=== PATIENT | male | born 1975 | race Caucasian/White ===

== ENCOUNTER 2016-09-28 05:56 | Inpatient (IN) | payer OTHER ==
[~2016-09-28] VITALS: Ht 177.8 cm; Wt 123.0 kg
[2016-09-28] VITALS (7 sets, daily range): BP systolic 121–155; BP diastolic 73–95; PULSE 82–110; RESP 9–20; Ht 177.8 cm; Wt 123.0 kg
[2016-09-28] MEDS ORDERED: LIDOCAINE 0.5% (MDV) 50 ML INJ ONE (08:36)
[2016-09-28] MEDS ORDERED: THROMBIN 5000 UNIT VIAL ONE ×3 (08:36→16:42)
[2016-09-28] MEDS ORDERED: BUPIVACAINE 0.5%/EPI (SDV) 10 ML INJ ONE (08:36)
[2016-09-28] MEDS ORDERED: GELATIN SIZE 100 SPONGE ONE (08:36)
[2016-09-28] MEDS ORDERED: POLYMYXIN/BACITRACIN 1L IRRIG ONE (08:37)
[2016-09-28] MEDS ORDERED: ROCURONIUM 50 MG INJ ONE ×2 (09:10→19:54)
[2016-09-28] MEDS ORDERED: MIDAZOLAM 1 MG/ML 2 ML INJ ONE (09:10)
[2016-09-28] MEDS ORDERED: PROPOFOL 20 ML ONE ×3 (09:10→19:54)
[2016-09-28] MEDS ORDERED: HYDROmorphONE 2 MG/ML SYG ONE ×2 (09:10→20:50)
[2016-09-28] MEDS ORDERED: SUCCINYLCHOLINE CHLORIDE 100 MG/5 ML SYG IV ONE (09:10)
[2016-09-28] MEDS ORDERED: METOCLOPRAMIDE 10 MG INJ ONE (09:10)
--- NOTE | 2016-09-28 09:52 | HPN ---
Date/Time of Note Date/Time of Note DATE: 09/28/16 TIME: 09:52 Interval H&P Admission Note Pt. seen H&P reviewed: No system changes VILMA GREEN MD Sep 28, 2016 09:52
[2016-09-28] MEDS ORDERED: METOPROLOL 5 MG INJ ONE ×2 (10:41→18:20)
[2016-09-28] MEDS ORDERED: METOCLOPRAMIDE 10 MG INJ IV PRN ×2 (18:00→20:30)
[2016-09-28] MEDS ORDERED: EPHEDrine SULFATE 50 MG/5 ML SYG IV PRN ×2 (18:00→20:30)
[2016-09-28] MEDS ORDERED: HYDROmorphONE (0.2 MG/ML) 10ML SYG IV PRN ×3 (18:00)
[2016-09-28] MEDS ORDERED: MIDAZOLAM 1 MG/ML 2 ML INJ IV PRN ×2 (18:00→20:30)
[2016-09-28] MEDS ORDERED: hydrALAzine 20 MG INJ IV PRN ×2 (18:00→20:30)
[2016-09-28] MEDS ORDERED: LABETALOL HCL 20MG INJ IV PRN ×2 (18:00→20:30)
[2016-09-28] MEDS ORDERED: ONDANSETRON 4 MG INJ IV PRN ×3 (18:00→21:00)
[2016-09-28] MEDS ORDERED: DIPHENHYDRAMINE 50 MG INJ IV PRN ×2 (18:00→20:30)
[2016-09-28] MEDS ORDERED: MEPERIDINE 25 MG INJ IV PRN ×2 (18:00→20:30)
[2016-09-28] MEDS ORDERED: FENTAnyl 50 MCG/ML VIAL ONE (19:43)
[2016-09-28] MEDS ORDERED: HYDROmorphONE 1 MG/ML SYG IV PRN ×3 (20:30)
[2016-09-28] MEDS ORDERED: ALBUTEROL 0.083% (NEB) 2.5 MG/3 ML AMP HHN ONE (20:30)
[2016-09-28] MEDS ORDERED: FAT EMULSION 20% 0 ML IV ONE (20:50)
[2016-09-28] MEDS ORDERED: BISACODYL 10 MG SUPP PR PRN (21:00)
[2016-09-28] MEDS ORDERED: NALOXONE (0.4 MG/ML) INJ IV PRN (21:00)
--- NOTE | 2016-09-28 21:00 | RADRPT ---
PROCEDURE: Intraoperative imaging of the lumbar spine with fluoroscopy. CLINICAL INDICATION: Back pain. Intraoperative. TECHNIQUE: 34 images of the lumbar spine were obtained in the operating room with an image intensi fier. No radiologist was in attendance. 400 seconds of fluoroscopy time was used. COMPARISON: No prior study is available for comparison. FINDINGS: For the purposes of this report, the last apparent true disc level is considered to be L5-S1. Based on this, images demonstrate posterior fusion with pedicle screws and connecting rods at the L3, L4, 5, and S1. Intervertebral cages are also present at L3-4, L4-5, and L5-S1. IMPRESSION: 1. Intraoperative imaging of the lumbar spine. RPTAT: QQ .Humberto Peres MD, MD Date Time Electronically viewed and signed by .Humberto Peres MD, on 09/28/2016 21:00 .R/
--- NOTE | 2016-09-28 21:03 | OPR ---
Date/Time of Note Date/Time of Note DATE: 09/28/16 TIME: 21:00 Operative Report Preoperative Diagnosis Recurrent L4-S1 disc herniation x3 and stenosis Postoperative Diagnosis Same as above + heavily calcified L4-S1 disc herniation causing severe stenosis Operation/Procedure Performed Redo L3, L4 and L5 laminectomy, L4-S1 MIS TLIF with posterior instrumented fusion, partial left L3-4, L4-5, L5-S1 corpectomy for resection of calcified disc herniations Surgeon: VILMA GREEN MD Anesthesia: general Estimated Blood Loss: 250 - 300 ml's Specimens None Grafts/Implants See op report Complications: None VILMA GREEN MD Sep 28, 2016 21:03
[2016-09-28] MEDS: traMADol 50 MG TAB PO SCH (21:29)
[2016-09-28] MEDS: DOCUSATE SODIUM 100 MG CAP PO SCH (21:29)
[2016-09-28] MEDS: CYCLOBENZAPRINE 10 MG TAB PO SCH (21:29)
[2016-09-28] MEDS: HYDROCODONE/APAP (10/325) TAB PO SCH (21:30)
[2016-09-28] MEDS: CEFAZOLIN 1 GM/50 ML (PMX) 50 ML IVPB SCH (21:30)
[2016-09-28] MEDS: D5W-0.45 NACL + KCL 20 MEQ 1,000 ML IV SCH (21:45)
[2016-09-28] MEDS: HYDROmorphONE 1 MG/ML SYG IV PRN (22:04)
[2016-09-29] VITALS (18 sets, daily range): BP systolic 97–151; BP diastolic 53–92; PULSE 79–105; RESP 14–29
[2016-09-29] MEDS: HYDROmorphONE 1 MG/ML SYG IV PRN ×9 (02:29→20:02)
[2016-09-29] MEDS: HYDROCODONE/APAP (10/325) TAB PO SCH ×3 (02:46→14:55)
[2016-09-29] MEDS: traMADol 50 MG TAB PO SCH ×4 (03:05→21:02)
[2016-09-29 05:11] LABS: ADD SCAN DIFF NO
[2016-09-29 05:19] LABS: BASOPHILS % 0.2 % (0.0-2.0); HEMATOCRIT 41.4 % (42.0-52.0); HEMOGLOBIN 14.2 g/dl (14.0-18.0); LYMPHOCYTES # 1.2 10^3/ul (0.8-2.9); LYMPHOCYTES % 7.8 % (15.0-51.0); MEAN CORPUSCULAR HEMOGLOBIN 29.5 pg (29.0-33.0); MEAN CORPUSCULAR HGB CONC 34.3 g/dl (32.0-37.0); MEAN CORPUSCULAR VOLUME 85.9 fl (82.0-101.0); MEAN PLATELET VOLUME 11.3 fl (7.4-10.4); MONOCYTE # 1.5 10^3/ul (0.3-0.9); MONOCYTES % 9.5 % (0.0-11.0); NEUTROPHIL # 12.9 10^3/ul (1.6-7.5); NEUTROPHILS % 82.1 % (39.0-77.0); PLATELET COUNT 236 10^3/UL (140-415); RED BLOOD COUNT 4.82 10^6/ul (4.70-6.10); RED CELL DISTRIBUTION WIDTH 11.9 % (11.5-14.5); WHITE BLOOD COUNT 15.8 10^3/ul (4.8-10.8)
[2016-09-29 05:50] LABS: CALCIUM 8.9 mg/dl (8.4-10.2); CREATININE 0.8 mg/dl (0.61-1.24); POTASSIUM 3.8 mmol/L (3.5-5.1)
[2016-09-29] MEDS: PANTOPRAZOLE 40 MG INJ IV SCH (05:56)
[2016-09-29] MEDS: CEFAZOLIN 1 GM/50 ML (PMX) 50 ML IVPB SCH ×2 (06:01→13:15)
[2016-09-29] MEDS: D5W-0.45 NACL + KCL 20 MEQ 1,000 ML IV SCH ×2 (07:06→20:45)
[2016-09-29] MEDS: CYCLOBENZAPRINE 10 MG TAB PO SCH ×3 (08:02→21:01)
[2016-09-29] MEDS: DOCUSATE SODIUM 100 MG CAP PO SCH ×2 (08:02→21:02)
[2016-09-29] MEDS ORDERED: LOSA100T7 PO (20:35)
[2016-09-29] MEDS ORDERED: HYD25 PO (20:35)
[2016-09-29] MEDS: OXYCODONE/ACETAMINOPHEN (10/325) TAB PO SCH (21:01)
[2016-09-30] MEDS: HYDROmorphONE 1 MG/ML SYG IV PRN ×3 (01:21→13:51)
[2016-09-30] MEDS: D5W-0.45 NACL + KCL 20 MEQ 1,000 ML IV SCH ×3 (02:45→22:22)
[2016-09-30] MEDS: OXYCODONE/ACETAMINOPHEN (10/325) TAB PO SCH ×4 (02:56→21:05)
[2016-09-30] MEDS: traMADol 50 MG TAB PO SCH ×4 (02:56→21:07)
[2016-09-30] MEDS: PANTOPRAZOLE 40 MG INJ IV SCH (05:09)
[2016-09-30] MEDS: CYCLOBENZAPRINE 10 MG TAB PO SCH ×3 (07:55→21:06)
[2016-09-30] MEDS: DOCUSATE SODIUM 100 MG CAP PO SCH ×2 (07:56→21:05)
[2016-09-30 08:18] VITALS: BP 116/58; RESP 18
[2016-09-30] MEDS ORDERED: LOSARTAN 50 MG TAB PO SCH (09:00)
--- NOTE | 2016-09-30 18:17 | PN ---
Date/Time of Note Date/Time of Note DATE: 09/30/16 TIME: 17:44 Assessment/Plan VTE Prophylaxis VTE Prophylaxis Intervention: SCD's Lines/Catheters IV Catheter Type (from Nrs): Saline Lock Central line still needed: No Urinary Cath still in place: No Assessment/Plan Assessment/Plan 41 year old male who was electively admitted for lumbar surgery who underwent redo L3, L4 and L5 laminectomy, L4-S1 MIS TLIF with posterior instrumented fusion, partial left L3-4, L4-5, L5-S1 corpectomy for resection of calcified disc herniations. Overall, he is progressing well, however he is orthostatic possibly secondary to his BP meds. Therefore, he cannot actively participate in PT. Also, there has been a delay in obtaining a back brace which is holding up the discharge. Hopefully, it will be available tomorrow. I will decrease his BP medication to half dose and monitor his BP. Also, the patient has a history of DM, but his has lost about 50 lbs. I will check a hgbA1c and order DM education. Dispo: Home tomorrow after back brace is received and patient tolerating PT. He is amenable to going to outpatient PT at [facility] in [place] as he understands that outpatient PT is preferred as he is not homebound and will have access to equipment to assist in the recovery process. Subjective 24 Hr Interval Summary Free Text/Dictation Back pain improved with modification of medications. Drinking more water, but feeling dizzy when he ambulates making it difficult to participate with PT. Constitutional: no complaints Eyes: no complaints ENT: no complaints Respiratory: no complaints Cardiovascular: no complaints Gastrointestinal: no complaints Genitourinary: no complaints Musculoskeletal: no complaints Neurologic: no complaints Exam/Review of Systems Vital Signs Vitals Vital Signs Date Time Temp Pulse Resp B/P Pulse Ox O2 Delivery O2 Flow Rate FiO2 09/30/16 08:18 98.7 11 18 116/58 91 09/29/16 14:05 Room Air 09/29/16 13:00 2.0 09/28/16 23:04 28 Intake and Output 09/29/16 09/29/16 09/30/16 15:00 23:00 07:00 Intake Total 770 ml 800 ml 720 ml Output Total 495 ml 300 ml 800 ml Balance 275 ml 500 ml -80 ml Exam Constitutional: alert, oriented Psych: nl mood/affect, no complaints Head: normocephalic Eyes: nl conjunctiva ENMT: nl external ears & nose Neck: supple Respiratory: clear to auscultation Cardiovascular: regular rate and rhythm Gastrointestinal: soft Extremities: normal pulses Results Result Diagram: 09/29/16 0440 09/29/16 0440 Results 24 hrs Laboratory Tests Test 09/30/16 12:04 Hemoglobin A1c 5.2 Medications Medications Current Medications Potassium Chloride/Dextrose/ Sod Cl (D5-1/2ns + KCl 20 Meq) 1,000 ml @ 100 mls/ hr Q10H IV Last administered on 09/29/16 07:06; Admin Dose 100 MLS/HR; Start at 20:45 Hydromorphone HCl (Dilaudid) 0.2 mg Q1H PRN IV BREAKTHROUGH PAIN Last administered on 09/30/16 13:51; Admin Dose 0.2 MG; Start 09/28/16 at 21:00 Ondansetron HCl (Zofran Inj) 4 mg Q6H PRN IV NAUSEA AND/OR VOMITING Last administered on 09/29/16 10:14; Admin Dose 4 MG; Start 09/28/16 at 21:00 Bisacodyl (Dulcolax Supp) 10 mg DAILY PRN [place] CONSTIPATION; Start 09/28/16 at 21: 00 Docusate Sodium (Colace) 100 mg BID PO Last administered on 09/30/16 07:56; Admin Dose 100 MG; Start 09/28/16 at 21:00 Pantoprazole (Protonix Iv) 40 mg DAILY@06 IV Last administered on 09/30/16 05: 09; Admin Dose 40 MG; Start 09/29/16 at 06:00 Cyclobenzaprine HCl (Flexeril) 10 mg TID PO Last administered on 09/30/16 12:35 ; Admin Dose 10 MG; Start 09/28/16 at 21:00 Naloxone HCl (Narcan) 0.2 mg Q2M PRN IV RR 8 BREATHS/MIN OR LESS; Start at 21:00 Tramadol HCl (Ultram) 75 mg Q6H PO Last administered on 09/30/16 14:35; Admin Dose 75 MG; Start 09/29/16 at 21:00 Oxycodone/ Acetaminophen (Endocet (10/ 325)) 2 tab Q6H PO Last administered on 09/30/16t 14:35; Admin Dose 2 TAB; Start 09/29/16 at 21:00 Losartan Potassium (Cozaar) 50 mg DAILY PO ; Start 10/01/16 at 09:00 Gabapentin (Neurontin) 100 mg TID PO ; Start 09/30/16 at 21:00 FAITH BELLA MD Sep 30, 2016 17:54
[2016-09-30 20:04] VITALS: BP 116/55; RESP 16
[2016-09-30] MEDS: GABAPENTIN 100 MG CAP PO SCH (21:05)
[2016-10-01] MEDS: HYDROmorphONE 1 MG/ML SYG IV PRN ×2 (01:25→05:49)
[2016-10-01] MEDS: OXYCODONE/ACETAMINOPHEN (10/325) TAB PO SCH ×3 (03:02→14:59)
[2016-10-01] MEDS: traMADol 50 MG TAB PO SCH ×3 (03:02→15:56)
[2016-10-01] MEDS ORDERED: PANTOPRAZOLE (EC) 40 MG TAB PO SCH (06:00)
[2016-10-01 08:00] VITALS: BP 112/54; RESP 18
[2016-10-01] MEDS: D5W-0.45 NACL + KCL 20 MEQ 1,000 ML IV SCH (08:45)
[2016-10-01] MEDS ORDERED: LOSARTAN 50 MG TAB PO SCH (09:00)
[2016-10-01] MEDS: GABAPENTIN 100 MG CAP PO SCH ×2 (09:20→13:38)
[2016-10-01] MEDS: CYCLOBENZAPRINE 10 MG TAB PO SCH ×2 (09:20→13:38)
[2016-10-01] MEDS: DOCUSATE SODIUM 100 MG CAP PO SCH (09:20)
--- NOTE | 2016-10-01 11:55 | PN ---
Date/Time of Note Date/Time of Note DATE: 10/01/16 TIME: 11:53 Assessment/Plan VTE Prophylaxis VTE Prophylaxis Intervention: ambulation Lines/Catheters IV Catheter Type (from Nrsg): Saline Lock Urinary Cath still in place: No Assessment/Plan Assessment/Plan 1. POD #2 lumbar spinal fusion, cont PT, increase activity, plan d/c home Subjective 24 Hr Interval Summary Free Text/Dictation no complaints, pain controlled able to walk down the [place] today Exam/Review of Systems Vital Signs Vitals Vital Signs Date Time Temp Pulse Resp B/P Pulse Ox O2 Delivery O2 Flow Rate FiO2 10/01/16 08:00 98.9 91 18 112/54 98 09/29/16 14:05 Room Air 09/29/16 13:00 2.0 09/28/16 23:04 28 Intake and Output 09/30/16 09/30/16 10/01/16 15:00 23:00 07:00 Intake Total 1000 ml 1040 ml Output Total 1600 ml Balance 1000 ml -560 ml Exam nad, soft nt, ctab Results Result Diagram: 09/29/16 0440 09/29/16 0440 Results 24 hrs Laboratory Tests Test 09/30/16 12:04 Hemoglobin A1c 5.2 Medications Medications Current Medications Potassium Chloride/Dextrose/ Sod Cl (D5-1/2ns + KCl 20 Meq) 1,000 ml @ 100 mls/ hr Q10H IV Last administered on 09/29/16 07:06; Admin Dose 100 MLS/HR; Start at 20:45 Hydromorphone HCl (Dilaudid) 0.2 mg Q1H PRN IV BREAKTHROUGH PAIN Last administered on 10/01/16 05:49; Admin Dose 0.2 MG; Start 09/28/16 at 21:00 Ondansetron HCl (Zofran Inj) 4 mg Q6H PRN IV NAUSEA AND/OR VOMITING Last administered on 09/29/16 10:14; Admin Dose 4 MG; Start 09/28/16 at 21:00 Bisacodyl (Dulcolax Supp) 10 mg DAILY PRN [place] CONSTIPATION; Start 09/28/16 at 21: 00 Docusate Sodium (Colace) 100 mg BID PO Last administered on 10/01/16 09:20; Admin Dose 100 MG; Start 09/28/16 at 21:00 Cyclobenzaprine HCl (Flexeril) 10 mg TID PO Last administered on 10/01/16 09: 20; Admin Dose 10 MG; Start 09/28/16 at 21:00 Naloxone HCl (Narcan) 0.2 mg Q2M PRN IV RR 8 BREATHS/MIN OR LESS; Start at 21:00 Tramadol HCl (Ultram) 75 mg Q6H PO Last administered on 10/01/16 10:30; Admin Dose 75 MG; Start 09/29/16 at 21:00 Oxycodone/ Acetaminophen (Endocet (10/ 325)) 2 tab Q6H PO Last administered on 10/01/16 09:20; Admin Dose 2 TAB; Start 09/29/16 at 21:00 Losartan Potassium (Cozaar) 50 mg DAILY PO ; Start 10/01/16 at 09:00 Gabapentin (Neurontin) 100 mg TID PO Last administered on 10/01/16 09:20; Admin Dose 100 MG; Start 09/30/16 at 21:00 Pantoprazole (Protonix Tab) 40 mg DAILY@06 PO Last administered on 10/01/16 05 :49; Admin Dose 40 MG; Start 10/01/16 at 06:00 ILEANA GRANDE MD Oct 01, 2016 11:55
[2016-10-01] MEDS ORDERED: CYCL-319 PO (11:59)
[2016-10-01] MEDS ORDERED: GABA100C14 PO (11:59)
[2016-10-01] MEDS ORDERED: SENN-36 PO (11:59)
[2016-10-01] MEDS ORDERED: DOCU-144 PO (11:59)
[2016-10-01] MEDS ORDERED: POLYETHYLENE GLYCOL 17 GM PACKET PO PRN (12:00)
--- NOTE | 2016-10-01 12:02 | PDOCDIS ---
Discharge Instructions CONDITION Patient Condition: Fair HOME CARE INSTRUCTIONS: Diet Instructions: Reduced Calorie ACTIVITY: Activity Restrictions: Slowly Increase Activity FOLLOW UP/APPOINTMENTS Follow-up Plan 1. [facility] 2. dr chacon 1 week 3. PCP 1 week 4. call your doctor if no bowel motio n greater than 2 days for additional laxative recommendations ILEANA GRANDE MD Oct 01, 2016 12:02
[2016-10-01] MEDS ORDERED: SENNA/DOCUSATE NA (8.6MG/50MG) TAB PO SCH (21:00)
--- NOTE | 2016-10-05 08:59 | OPR ---
Date/Time of Note Date/Time of Note DATE: 10/05/16 TIME: 08:55 Operative Report Free Text/Dictation Operative report Operative report could not be dictated earlier because the hospital technical instructor system was not operational. Preoperative diagnosis: 1. Recurrent L3-4, L4-5 and L5-S1 disc herniations 3 2. L3-S1 stenosis Postoperative diagnosis: Same as above plus at the heavily calcified L3-4, L4-5 , L5-S1 disc herniations Operation performed: Redo minimally invasive L3, L4, L5 decompressive laminectomy (more laminectomy performed than would be required for a simple transforaminal lumbar interbody arthrodesis) Minimally invasive left total L3-4, L4-5 and L5- S1 facetectomies Minimally invasive partial L3-4, L4-5 and L5-S1 corpectomies for resection of heavily calcified disc herniations Minimally invasive L3-4, L4-5 and L5-S1 transforaminal lumbar interbody arthrodesis Placement of intervertebral cages at L3-4, L4-5 and L5-S1 (Alphatec plasma coated TLIF cages: Lordotic 12 mm height at L5-S1, lordotic 13 mm height at L4-5, lordotic 14 mm height at L3-4) L3-S1 posterior instrumentation (RTI [place] percutaneous pedicle screws 6.5 and 7.5 mm diameter) L3-S1 posterior arthrodesis Bone marrow aspirate harvest Morcellized local as well as all of his bone graft harvest Morcellized allograft placement (demineralized bone matrix putty) Intraoperative microscope with microdissection Intraoperative fluoroscopy with professional interpretation Intraoperative neurophysiologic monitoring including SSEP, MEP and EMG Indication for operation: This is a 41-year-old male who has previously undergone 3 multilevel lumbar laminectomies in [place] including the [facility] where he reportedly required prolonged operations given excessive difficulty with the laminectomies and microdiscectomies. The patient did have significant improvement of his lower extremity radicular pain after each of the operations but he had recurrence of his pain over time after each operation and was found to have multiple recurrent disc herniations. He had previously been told that should the disc herniations recur again will most likely require lumbar fusion. The patient has again developed recurrent radicular symptoms including pain, numbness and some weakness going down his bilateral lower extremities greater on the left than the right in the L4-L5 and S1 distribution as well as severe axial low back pain that is increasing over time. The patient has not been able to get significant improvement of his pain symptomatology with conservative management including physical therapy. Various treatment options including continued observation, interventional pain management as well as redo lumbar surgery that would include redo lumbar decompression as well as lumbar fusion were discussed with the patient and his girlfriend. The risks and benefits of the above operation were explained in great detail with the patient and his girlfriend. The patient agreed to undergo the above operation with the understanding that even with the above operation he may not have complete resolution and improvement of his symptoms and he may still have residual pain and end other symptoms. Description of operative procedure: The patient was brought to the operating room and after general anesthesia was obtained, he was placed prone on top of the open Ricardo table. His arms were abducted less than 90 in Superman position. All Pressure points were noted and padded appropriately. The patient's previous midline lumbar incision was noted. Then vertical paraspinal lumbar lines approximately 4 cm lateral to midline were marked on each side. After the skin was prepped and draped under standard and sterile fashion, the spinal needle was inserted under direct AP fluoroscopy and the entry point of the L3 L4 L5 and S1 pedicles was located along the paraspinal lumbar lines bilaterally. Then linear vertical incision lines connecting the entry points from L3-S1 was marked bilaterally along the paraspinal lumbar lines. Local anesthetic infiltrated into the marked incisions. The skin was incised down to the level of the fascia bilaterally. A Jamshidi needle was used to cannulate the L3 L4 L5 and S1 pedicles bilaterally under direct AP and lateral fluoroscopy. When the tip of the Jamshidi needle was at the junction of the pedicle and vertebral body, another AP fluoroscopy was taken to confirm that the medial border of the pedicles was not breached. Then the Jamshidi needle was slightly advanced into the vertebral bodies under direct lateral fluoroscopy. The Jamshidi needles were then exchanged with K wires. Each of the K wires was then tested withEMG testing in the testing thresholds were greater than 12 mA. A combination of 6.5 mm diameter and 7.5 mm diameter pedicle screws were inserted percutaneously on the right side under direct lateral fluoroscopy. No screws were placed on the left side yet. The K wires were then bent and stapled to the drapes for the time being. Attention was then paid to the L5-S1 level. Sharp K wire was used under direct lateral fluoroscopy and placed over the left L5-S1 facet junction. Serial to dilators were inserted and the posterior soft tissue was dissected off the posterior bony elements. The final working tube was inserted under direct lateral fluoroscopy placed parallel to the L5-S1 disc space and medialized and placed on top of the left L5-S1 facet junction and fixed to the table in that position. The operating microscope was brought into the field. The posterior soft tissue was dissected off the left L5-S1 facet junction. Using a high- speed drill and Kerrison rongeurs we then performed a total left L5-S1 facetectomy and an L5 decompressive laminectomy. All the bone was harvested for later autologous bone grafting. The left L5-S1 foramen was then unroofed. We encountered a completely calcified L5-S1 large disc herniation. Using an osteotome the calcified disc herniation was then broken into multiple pieces. The disc herniation was so heavily calcified that a partial L5 and S1 corpectomy was required in order to fully resect the calcified disc herniation and decompress the ventral epidural space. Once the calcified portion of the disc herniation was cracked and removed, we were then able to perform further discectomy at the L5-S1 level. Disc prepped work was able to be done at the L5- S1 level. The endplates were then decorticated. Using serial dory we were able to further distract the disc space. The disc space was then copiously irrigated with antibiotic solution. The properly sized lordotic plasma coated TLIF cage was packed with a combination of the locally harvested morcellized autologous bone graft, bone marrow aspirate that was harvested during the cannulation of the pedicles as well as demineralized bone matrix allograft putty. Some of the remaining combination of biologic material was then packed into the anterior disc space. The cage was then inserted under direct lateral fluoroscopy and medialized and countersunk. Several pieces of Gelfoam were placed over the neural foramen protecting the exposed dura and the traversing and exiting nerve roots. Some of the remaining biologic material was placed over the neural foramen for posterior arthrodesis. The working tube was then removed. The same set of procedures was then done in order to access the left L4-5 and left L3-4 neural foramen for transforaminal lumbar interbody arthrodesis at each of these levels. Decompressive L3 and L4 laminectomy was also done at these levels. We also encountered calcified disc herniations at L3 -4 and L4-5 levels. The worst degree of calcification was encountered at L5-S1 followed by L3-4 and lastly by L4-5 levels. In order to fully perform discectomy and decompression of the ventral epidural , partial L3-4 and L4-5 corpectomy needed to be done as well. Once the decompression was done at each of these levels, and the disc prepped work was done and the endplates were decorticated, properly sized lordotic plasma coated TLIF cage was packed with the same combination of biologic material as the L5-S1 level. The anterior disc space was also packed with the same combination of biologic materials prior to the insertion of the cage. Posterior arthrodesis was also done at the L3-4 and L4-5 levels using the same technique as the L5-S1 level. The working tube was then removed. A combination of 6.5 mm diameter and 7.5 mm diameter pedicle screws was also inserted on the left side through the K wires percutaneously under direct lateral fluoroscopy. Then properly sized rods were then measured. The rods were then bent into a lordotic shape and inserted percutaneously under direct lateral fluoroscopy. The set screws were inserted using the minimally invasive reducers. We then compressed along the L3-4, L4-5 and L5-S1 disc spaces. The setscrews were then fully tightened using the torque and counter torque wrench devices. The pedicle screw posts were then broken off. Final AP and lateral x-ray showed good positioning of the hardware. The wounds were then copiously irrigated with body solution. The muscle and fascial layers were then reapproximated with interrupted sutures. The dermal layers were reapproximated with interrupted sutures. The skin was reapproximated with Dermabond. Sterile dressing was placed on top of each of the incisions. The patient was then placed supine on the hospital bed. He was then woken up, extubated and transported to the intensive care unit in stable condition moving his upper and lower extremities equally and spontaneously. The neurophysiologic monitoring signals were stable throughout the procedure. Estimated blood loss: 300 cc Blood products administered: None Packs/drains: None Type of anesthesia: Gen. Wound classification: Clean Skin closure: Dermabond Patient's condition: Stable Prognosis: Good Estimated Blood Loss: 250 - 300 ml's Specimens None Complications: None VILMA GREEN MD Oct 05, 2016 08:59
== END 2016-10-01 18:50 | disposition home health service (06) | DRG 460 ==
LOC: REC 05:56 → ICU 21:00 → MS1 09-29 13:56
PROVIDERS: ADMIT Neurological Surgery; ATTEND Neurological Surgery
PROC: 0SG10A1 (ICD-10-PCS; 2016-09-28)
PROC: 0SG0071 Fusion of Lumbar Vertebral Joint with Autologous Tissue Substitute, Posterior Approach, Posterior Column, Open Approach (ICD-10-PCS; 2016-09-28)
PROC: 0SB20ZZ Excision of Lumbar Vertebral Disc, Open Approach (ICD-10-PCS; 2016-09-28)
PROC: 0SG10K1 Fusion of 2 or more Lumbar Vertebral Joints with Nonautologous Tissue Substitute, Posterior Approach, Posterior Column, Open Approach (ICD-10-PCS; principal; 2016-09-28 09:00)
DX: M51.16 Intervertebral disc disorders with radiculopathy, lumbar region (principal); I10 Essential (primary) hypertension; M51.17 Intervertebral disc disorders with radiculopathy, lumbosacral region; M48.07 Spinal stenosis, lumbosacral region; E11.9 Type 2 diabetes mellitus without complications; E66.9 Obesity, unspecified; Z68.38 Body mass index [BMI] 38.0-38.9, adult; E78.5 Hyperlipidemia, unspecified
CPT/HCPCS: 72114; 80048; 82962; 83036; 85025; 94640; 97116; 97162; 97530; C1713; C9113; J0690; J1170; J1644; J2250; J2405; J2765; J3010; J3480; J7999; L0639